=== PATIENT | male | born 1985 | race Two or more races ===

== ENCOUNTER 2020-04-14 07:21 | Emergency (ER) | payer OTHER ==
[~2020-04-14] VITALS: Ht 170.2 cm; Wt 114.0 kg
--- NOTE | 2020-04-14 08:47 | NUR ---
PT AMBULATORY TO ROOM, ERP TO BEDSIDE.
[2020-04-14] MEDS ORDERED: SODIUM CHLORIDE FLUSH 10ML SYR IVF ONE (09:00)
[2020-04-14 09:17] LABS: BASOPHILS # (AUTO) 0.05 x10^3/uL (0-0.1); BASOPHILS % (AUTO) 1 % (0-1); EOSINOPHILS # (AUTO) 0.02 x10^3/uL (0-0.4); EOSINOPHILS % (AUTO) 0 % (1-7); LYMPHOCYTES % (AUTO) 22 % (22-44); MD NO; MEAN CORPUSCULAR HEMOGLOBIN 31.1 pg (27.5-34.5); MEAN CORPUSCULAR HGB CONC 33.5 g/dL (33.2-36.2); MEAN PLATELET VOLUME 7.3 fL (7.4-10.4); MONOCYTES # (AUTO) 0.45 x10^3/uL (0.2-0.8); MONOCYTES % (AUTO) 5 % (2-9); NEUTROPHILS # (AUTO) 6.19 x10^3/uL (1.8-6.8); NEUTROPHILS % (AUTO) 72 % (42-75); PLATELET COUNT 407 x10^3/uL (130-400); RED BLOOD COUNT 5.16 x10^6/uL (4.38-5.82); RED CELL DISTRIBUTION WIDTH 13.5 % (9.4-14.8)
[2020-04-14 09:28] LABS: ALANINE AMINOTRANSFERASE 70 U/L (12-78); ALBUMIN 4.2 g/dL (3.4-5.0); ANION GAP 10 mmol/L (5-15); CALCIUM 9.4 mg/dL (8.5-10.1); CHLORIDE 109 mmol/L (98-107); CREATININE 1.17 mg/dL (0.7-1.3)
[2020-04-14 09:30] LABS: ALKALINE PHOSPHATASE 89 U/L (45-117); BILIRUBIN,TOTAL 0.5 mg/dL (0.2-1.0); TOTAL PROTEIN 8.8 g/dL (6.4-8.2)
--- NOTE | 2020-04-14 09:36 | NUR ---
PT LAYING IN BED, NO SIGNS OF DISTESS, VSS. ALL NEEDS MET AT THIS TIME, WILL CONTINUE TO MONITOR.
[2020-04-14 10:00] LABS: MICROSCOPIC INDICATED
--- NOTE | 2020-04-14 10:30 | NUR ---
PT SITTING IN BED, WATCHING TV, NO SIGNS OF DISTRESS, ALL NEEDS MET AT THIS TIME. WILL CONTINUE TO MONITOR.
--- NOTE | 2020-04-14 11:13 | NUR ---
assist rn - CALLED CT TO SEE IF COMING TO GET PT. BUN MACHINE OPERATOR STATED PT IS NEXT TO BE PICKED UP FOR IMAGING
--- NOTE | 2020-04-14 11:14 | NUR ---
PT CONDITION UNCHANGED.
--- NOTE | 2020-04-14 11:21 | NUR ---
PT TO CT.
[2020-04-14] MEDS ORDERED: OMNIPAQUE 350 MG/ML, 100ML BOTTLE ONE (11:32)
--- NOTE | 2020-04-14 11:35 | NUR ---
PT BACK FROM CT, NO NEEDS OR COMPLAINTS AT THIS TIME. WILL CONTINUE TO MONITOR.
--- NOTE | 2020-04-14 11:51 | NUR ---
ERP TO BEDSIDE.
[2020-04-14 12:18] VITALS: BP 137/81
== END 2020-04-14 12:32 | disposition home or self-care (01) ==
LOC: ED 08:30
DX: R10.84 Generalized abdominal pain (principal)
CPT/HCPCS: 36415; 74177; 80053; 81001; 83690; 85025; 99285; Q9967